=== PATIENT | male | born 1985 | race African-American/Black ===

== ENCOUNTER 2022-11-28 09:45 | Emergency (ER) | payer OTHER ==
[~2022-11-28] VITALS: Ht 180.3 cm; Wt 88.0 kg
[2022-11-28 10:16] VITALS: O2SAT 100
[2022-11-28 12:15] VITALS: BP 117/65; PULSE 79; RESP 16
[2022-11-28] MEDS ORDERED: IBUPROFEN 600MG TABLET PO ONE (12:15)
[2022-11-28] MEDS ORDERED: NAPR-1129 MT (12:17)
== END 2022-11-28 13:15 | disposition home or self-care (01) ==
LOC: ER 10:35 → EDBD 10:35 → ER 13:15
DX: M54.50 Low back pain, unspecified (principal); S41.111A Laceration without foreign body of right upper arm, initial encounter; J45.909 Unspecified asthma, uncomplicated; X58.XXXA Exposure to other specified factors, initial encounter; Y93.89 Activity, other specified; Y92.89 Other specified places as the place of occurrence of the external cause; Y99.8 Other external cause status
CPT/HCPCS: 99282